=== PATIENT | female | born 1985 | race Caucasian/White ===

== ENCOUNTER 2017-01-20 15:20 | Inpatient (IN) | payer MEDICAID ==
[~2017-01-20] VITALS: Ht 162.6 cm; Wt 91.7 kg
[~2017-01-20 15:20] MED LIST: IBUP600T26 PO
[2017-01-20 15:43] VITALS: BP 114/68; PULSE 139; RESP 16; TEMP 103.1; O2SAT 95
[2017-01-20] MEDS ORDERED: AZTREONAM INJ 2,000 MG in SODIUM CHLORIDE 0.9% INJ 100 ML IV STA (16:14)
[2017-01-20] MEDS ORDERED: VANCOMYCIN INJ 1,300 MG in SODIUM CHLORID 0.9% 500 ML INJ 500 ML IV STA (16:14)
[2017-01-20] MEDS ORDERED: metroNIDAZOLE 500 MG INJ 100 ML IV STA (16:14)
[2017-01-20] MEDS ORDERED: ACETAMINOPHEN 650 MG SUPP RECTAL ONE (16:15)
[2017-01-20] MEDS ORDERED: SODIUM CHLOR 0.9% 1000 ML INJ 1,000 ML IV ONE ×2 (16:15)
[2017-01-20] MEDS ORDERED: HYDROmorphone HCL PF 1 MG/ML VIAL IV PUSH ONE (16:15)
[2017-01-20] MEDS ORDERED: ONDANSETRON HCL 4 MG/2 ML VIAL IV PUSH ONE (16:15)
--- NOTE | 2017-01-20 16:24 | PD ---
HPI Chief Complaint: Fever Time Seen by Provider: 16:10 Travel History International Travel<30 days: No Contact w/Intl Traveler<30days: No Traveled to known affect area: No History of Present Illness HPI This 31-year-old female is complaining of fever. Her fever started yesterday. She has had a lot of pain in her right buttock and its been swollen. There has been some drainage of pus from this area. There is no history of trauma. She does not have diabetes. She says there is no . She is allergic to penicillin [facility] Past Medical History Blood Disorders: No Anxiety: Yes (no meds) Diminished Hearing: No Immunizations Current: No Influenza Vaccination: No ?: Not LMP: 01/06/17 : 1 Para: 1 Social History Alcohol Use: No Tobacco Use: No (quit 5 yrs ago- smoked 1 pack cigs every few days) Substance Use: No Allergies-Medications (Allergen,Severity, Reaction): Coded Allergies: penicillin G (Unverified Allergy, Severe, RASH, 01/20/17) Reported Meds & Prescriptions Reported Meds & Active Scripts Active No Active Prescriptions or Reported Medications Review of Systems General / Constitutional: Positive: Fever, Chills Eyes: No: Diploplia, Blurred Vision HENT: No: Headaches Cardiovascular: No: Chest Pain or Discomfort, Palpitations Respiratory: No: Cough Gastrointestinal: Positive: Nausea, No: Abdominal Pain Genitourinary: No: Urgency, Frequency Musculoskeletal: Positive: Pain Skin: No Rash, No Itching Neurologic: No: Weakness Endocrine: No: Heat Intolerance, Cold Intolerance Physical Exam Narrative GENERAL: Well-developed female. Initial temp is 103. Heart rate is 140 SKIN: Focused skin assessment warm/dry. HEAD: Atraumatic. Normocephalic. EYES: Pupils equal and round. No scleral icterus. No injection or drainage. ENT: No nasal bleeding or discharge. Mucous membranes pink and moist. NECK: Trachea midline. No JVD. CARDIOVASCULAR: Regular rate and rhythm. No murmur appreciated. RESPIRATORY: No accessory muscle use. Clear to auscultation. Breath sounds equal bilaterally. GASTROINTESTINAL: Abdomen soft, non-tender, nondistended. Hepatic and splenic margins not palpable. Examining the right buttock there is a area of induration and tenderness which measures about 6 cm in diameter. The overlying skin is pink. There are a few smaller pustular lesions scattered on the skin MUSCULOSKELETAL: No obvious deformities. No clubbing. No cyanosis. No edema. NEUROLOGICAL: Awake and alert. No obvious cranial nerve deficits. Motor grossly within normal limits. Normal speech. PSYCHIATRIC: Appropriate mood and affect; insight and judgment normal. Data Data Last Documented VS Vital Signs Date Time Temp Pulse Resp B/P Pulse Ox O2 Delivery O2 Flow Rate FiO2 01/20/17 15:52 16 01/20/17 15:43 103.1 139 114/68 95 Orders Complete Blood Count With Diff (01/20/17 16:14) Comprehensive Metabolic Panel (01/20/17 16:14) Lactic Acid Sepsis Protocol (01/20/17 16:14) Urinalysis - C+S If Indicated (01/20/17 16:14) Blood Culture (01/20/17 16:14) Wound Culture And Gram Stain (01/20/17 16:14) Blood Glucose (01/20/17 16:14) Ecg Monitoring (01/20/17 16:14) Iv Access Insert/Monitor (01/20/17 16:14) Oximetry (01/20/17 16:14) Oxygen Administration (01/20/17 16:14) Aztreonam Inj (Azactam Inj) (01/20/17 16:14) Metronidazole 500 Mg Inj (Flagyl 500 Mg (01/20/17 16:14) Vancomycin Inj (Vancomycin Inj) (01/20/17 16:14) Sodium Chlor 0.9% 1000 Ml Inj (Ns 1000 M (01/20/17 16:15) Sodium Chlor 0.9% 1000 Ml Inj (Ns 1000 M (01/20/17 16:15) Acetaminophen Supp (Tylenol Supp) (01/20/17 16:15) Hydromorphone Pf Inj (Dilaudid Pf Inj) (01/20/17 16:15) Ondansetron Inj (Zofran Inj) (01/20/17 16:15) Lidocai-Epi 1%-1:100,000 Inj (Xylocaine- (01/20/17 16:30) Lidocaine 1% Inj (50 Ml) (Xylocaine 1% I (01/20/17 17:00) Potassium Chloride (Kcl) (01/20/17 17:45) Admit Order (Ed Use Only) (01/20/17 17:52) Labs Laboratory Tests Test 01/20/17 01/20/17 16:44 16:50 White Blood Count 22.8 TH/MM3 Red Blood Count 4.18 MIL/MM3 Hemoglobin 12.1 GM/DL Hematocrit 34.8 % Mean Corpuscular Volume 83.1 FL Mean Corpuscular Hemoglobin 29.0 PG Mean Corpuscular Hemoglobin 35.0 % Concent Red Cell Distribution Width 13.2 % Platelet Count 259 TH/MM3 Mean Platelet Volume 7.9 FL Neutrophils (%) (Auto) 89.4 % Lymphocytes (%) (Auto) 4.2 % Monocytes (%) (Auto) 6.3 % Eosinophils (%) (Auto) 0.0 % Basophils (%) (Auto) 0.1 % Neutrophils # (Auto) 20.4 TH/MM3 Lymphocytes # (Auto) 1.0 TH/MM3 Monocytes # (Auto) 1.4 TH/MM3 Eosinophils # (Auto) 0.0 TH/MM3 Basophils # (Auto) 0.0 TH/MM3 CBC Comment DIFF FINAL Differential Comment Sodium Level 132 MEQ/L Potassium Level 3.4 MEQ/L Chloride Level 98 MEQ/L Carbon Dioxide Level 27.4 MEQ/L Anion Gap 7 MEQ/L Blood Urea Nitrogen 6 MG/DL Creatinine 0.78 MG/DL Estimat Glomerular Filtration 85 ML/MIN Rate Random Glucose 96 MG/DL Lactic Acid Level 1.0 mmol/L Calcium Level 9.1 MG/DL Total Bilirubin 0.9 MG/DL Aspartate Amino Transf 10 U/L (AST/SGOT) Alanine Aminotransferase 14 U/L (ALT/SGPT) Alkaline Phosphatase 73 U/L Total Protein 7.8 GM/DL Albumin 3.4 GM/DL Urine Color YELLOW Urine Turbidity CLEAR Urine pH 6.0 Urine Specific [place] 1.010 Urine Protein NEG mg/dL Urine Glucose (UA) NEG mg/dL Urine Ketones 40 mg/dL Urine Occult Blood SMALL Urine Nitrite NEG Urine Bilirubin NEG Urine Leukocyte Esterase SMALL Urine WBC 3-5 /hpf Urine Squamous Epithelial 0-5 /hpf Cells Microscopic Urinalysis Comment CULT NOT INDICATED MDM Medical Decision Making Medical Screen Exam Complete: Yes Emergency Medical Condition: Yes Medical Record Reviewed: Yes Differential Diagnosis Differential includes abscess of the buttock, sepsis, Narrative Course White count is 22.8 with a hemoglobin of 12. IUD has been performed and purulent material has been obtained. Sepsis Criteria SIRS Criteria (2 or more): Temp > 100.9 or < 96.8, Heart rate over 90, WBC > 23187, < 4000 or > 10% bands Sepsis Criteria (SIRS+source): Infect source susp/known Diagnosis Primary Impression: Abscess of buttock, right Scripts No Active Prescriptions or Reported Meds Jones Kent MD Jan 20, 2017 16:24
[2017-01-20] MEDS ORDERED: LIDOCAINE 1%/EPINEPHrine 1:100,000 SOLN 20 ML VIAL INFIL ONE (16:30)
[2017-01-20] MEDS ORDERED: LIDOCAINE HCL 1% 50 ML VIAL INFIL ONE (17:00)
[2017-01-20 17:04] LABS: AUTOMATED NEUTROPHIL # 20.4 TH/MM3 (1.8-7.7); BASOPHIL % 0.1 % (0.0-2.0); HEMATOCRIT 34.8 % (35.0-46.0); LYMPH % 4.2 % (9.0-44.0); MEAN CELL VOLUME 83.1 FL (80.0-100.0); MONO % 6.3 % (0.0-8.0); NEUT % 89.4 % (16.0-70.0); PLATELET COUNT 259 TH/MM3 (150-450); RED BLOOD COUNT 4.18 MIL/MM3 (4.00-5.30); RED CELL DISTRIBUTION WIDTH 13.2 % (11.6-17.2); WHITE BLOOD COUNT 22.8 TH/MM3 (4.0-11.0)
[2017-01-20 17:05] LABS: BLOOD, URINE SMALL (NEG); GLUCOSE,URINE NEG (NEG); KETONE, URINE 40 mg/dL (NEG); NITRITE,URINE NEG (NEG)
[2017-01-20 17:08] LABS: HEMO FLAGS DIFF FINAL
[2017-01-20 17:14] LABS: CHLORIDE 98 MEQ/L (98-107); POTASSIUM 3.4 MEQ/L (3.5-5.1); SODIUM (NA) 132 MEQ/L (136-145)
[2017-01-20 17:17] LABS: URINE COLOR YELLOW (YELLW/STRAW)
[2017-01-20 17:18] LABS: ANION GAP 7 MEQ/L (5-15); BICARBONATE 27.4 MEQ/L (21.0-32.0); BLOOD UREA NITROGEN 6 MG/DL (7-18)
[2017-01-20 17:18] LABS: COMMENT (UR) CULT NOT INDICATED; CULTURE IF INDICATED CULT NOT INDICATED; SQUAMOUS EPITHELIAL CELL URINE 0-5 /hpf (0-5)
[2017-01-20 17:21] LABS: ALT (GPT) 14 U/L (10-53); AST (GOT) 10 U/L (15-37); GLOMERULAR FILTRATION RATE 85 ML/MIN (>89)
[2017-01-20 17:23] LABS: TOTAL BILIRUBIN ADULT 0.9 MG/DL (0.2-1.0)
[2017-01-20 17:24] LABS: ALKALINE PHOSPHATASE 73 U/L (45-117)
--- NOTE | 2017-01-20 17:41 | PD ---
Physical Exam Time Seen by Provider: 17:00 Narrative I was asked by Dr. Padilla to perform an incision and drainage on this patient. Please see his note for further details. Data Data Last Documented VS Vital Signs Date Time Temp Pulse Resp B/P Pulse Ox O2 Delivery O2 Flow Rate FiO2 01/20/17 15:52 16 01/20/17 15:43 103.1 139 114/68 95 Orders Complete Blood Count With Diff (01/20/17 16:14) Comprehensive Metabolic Panel (01/20/17 16:14) Lactic Acid Sepsis Protocol (01/20/17 16:14) Urinalysis - C+S If Indicated (01/20/17 16:14) Blood Culture (01/20/17 16:14) Wound Culture And Gram Stain (01/20/17 16:14) Blood Glucose (01/20/17 16:14) Ecg Monitoring (01/20/17 16:14) Iv Access Insert/Monitor (01/20/17 16:14) Oximetry (01/20/17 16:14) Oxygen Administration (01/20/17 16:14) Aztreonam Inj (Azactam Inj) (01/20/17 16:14) Metronidazole 500 Mg Inj (Flagyl 500 Mg (01/20/17 16:14) Vancomycin Inj (Vancomycin Inj) (01/20/17 16:14) Sodium Chlor 0.9% 1000 Ml Inj (Ns 1000 M (01/20/17 16:15) Sodium Chlor 0.9% 1000 Ml Inj (Ns 1000 M (01/20/17 16:15) Acetaminophen Supp (Tylenol Supp) (01/20/17 16:15) Hydromorphone Pf Inj (Dilaudid Pf Inj) (01/20/17 16:15) Ondansetron Inj (Zofran Inj) (01/20/17 16:15) Lidocai-Epi 1%-1:100,000 Inj (Xylocaine- (01/20/17 16:30) Lidocaine 1% Inj (50 Ml) (Xylocaine 1% I (01/20/17 17:00) Labs Laboratory Tests Test 01/20/17 01/20/17 16:44 16:50 White Blood Count 22.8 TH/MM3 Red Blood Count 4.18 MIL/MM3 Hemoglobin 12.1 GM/DL Hematocrit 34.8 % Mean Corpuscular Volume 83.1 FL Mean Corpuscular Hemoglobin 29.0 PG Mean Corpuscular Hemoglobin 35.0 % Concent Red Cell Distribution Width 13.2 % Platelet Count 259 TH/MM3 Mean Platelet Volume 7.9 FL Neutrophils (%) (Auto) 89.4 % Lymphocytes (%) (Auto) 4.2 % Monocytes (%) (Auto) 6.3 % Eosinophils (%) (Auto) 0.0 % Basophils (%) (Auto) 0.1 % Neutrophils # (Auto) 20.4 TH/MM3 Lymphocytes # (Auto) 1.0 TH/MM3 Monocytes # (Auto) 1.4 TH/MM3 Eosinophils # (Auto) 0.0 TH/MM3 Basophils # (Auto) 0.0 TH/MM3 CBC Comment DIFF FINAL Differential Comment Sodium Level 132 MEQ/L Potassium Level 3.4 MEQ/L Chloride Level 98 MEQ/L Carbon Dioxide Level 27.4 MEQ/L Anion Gap 7 MEQ/L Blood Urea Nitrogen 6 MG/DL Creatinine 0.78 MG/DL Estimat Glomerular Filtration 85 ML/MIN Rate Random Glucose 96 MG/DL Lactic Acid Level 1.0 mmol/L Calcium Level 9.1 MG/DL Total Bilirubin 0.9 MG/DL Aspartate Amino Transf 10 U/L (AST/SGOT) Alanine Aminotransferase 14 U/L (ALT/SGPT) Alkaline Phosphatase 73 U/L Total Protein 7.8 GM/DL Albumin 3.4 GM/DL Urine Color YELLOW Urine Turbidity CLEAR Urine pH 6.0 Urine Specific [place] 1.010 Urine Protein NEG mg/dL Urine Glucose (UA) NEG mg/dL Urine Ketones 40 mg/dL Urine Occult Blood SMALL Urine Nitrite NEG Urine Bilirubin NEG Urine Leukocyte Esterase SMALL Urine WBC 3-5 /hpf Urine Squamous Epithelial 0-5 /hpf Cells Microscopic Urinalysis Comment CULT NOT INDICATED MDM Medical Record Reviewed: Yes Supervised Visit with DALE: Yes Procedures Procedure Narrative INCISION AND DRAINAGE OF ABSCESS: The area was prepped and was sterilely draped. A subcutaneous wheal of 1% lidocaine with a total number 8 mL was used to anesthetize the area properly. A number 11 scalpel was used to make a 1 cm incision across the area of the abscess. The abscess was drained, complex loculations were broken down, and irrigated with normal saline. Cultures were obtained. Quarter inch iodoform packing was placed in the wound. Sterile dressing applied. Patient advised to have packing removed in two days. Diagnosis Primary Impression: Abscess of buttock, right Scripts No Active Prescriptions or Reported Meds Margaret Carter Jan 20, 2017 17:41
[2017-01-20] MEDS ORDERED: POTASSIUM CHLORIDE 20 MEQ CONTROLLED RELEASE TAB PO ONE (17:45)
[2017-01-20] MEDS ORDERED: ACETAMINOPHEN 500 MG CPLT PO PRN (18:15)
[2017-01-20] MEDS ORDERED: SODIUM CHLORIDE 0.9% FLUSH 10 ML FLUSH IV FLUSH PRN (18:15)
[2017-01-20] MEDS ORDERED: ACETAMINOPHEN/HYDROcodone 325 MG/5 MG TAB PO PRN (18:15)
[2017-01-20] MEDS ORDERED: Vancomycin Consult Pharmacy 1 EA OTHER SCH (18:15)
[2017-01-20 18:36] VITALS: BP 100/49; PULSE 112; RESP 16; TEMP 100.9; O2SAT 95
[2017-01-20 18:37] VITALS: O2SAT 96
--- NOTE | 2017-01-20 18:45 | HHI.HP ---
[facility] Primary Care Physician No Primary Care Physician Admission Diagnosis ABCESS OF BUTTOCK, SEPSIS Diagnoses: Chief Complaint: Buttock abscess Travel History International Travel<30 Days: No Contact w/Intl Traveler <30 Da: No Traveled to Known Affected Are: No Sepsis Criteria SIRS Criteria (2 or more): Temp > 100.9 or < 96.8, Heart rate over 90, WBC > 81314, < 4000 or > 10% bands Sepsis Criteria (SIRS+source): Infect source susp/known History of Present Illness 31-year-old female with no prior medical history presents to the emergency room with complaint of right buttocks abscess, fevers, general malaise. Patient reports she noticed a pimple involving the right buttock about 2 days ago. There has been increasing swelling and has become severely painful today. She did notice a small amount of drainage. Today she started experiencing fevers, chills, lightheadedness which prompted the emergency room visit. Initial workup in the emergency room found a right buttock abscess. Status post I&D with purulent drainage. Patient meets criteria for sepsis and I was asked to admit for IV antibiotics. Review of Systems Constitutional: COMPLAINS OF: Fatigue, Fever, Chills, Dizziness Integumentary: COMPLAINS OF: Rash Except as stated in HPI: all other systems reviewed are Neg Past Family Social History Past Medical History None Past Surgical History None Reported Medications Reported Meds & Active Scripts Active No Active Prescriptions or Reported Medications Allergies: Coded Allergies: penicillin G (Unverified Allergy, Severe, RASH, 01/20/17) Family History No significant medical history in close relatives. Social History Patient does not use tobacco, alcohol, or illicit drugs. Physical Exam Vital Signs Vital Signs Date Time Temp Pulse Resp B/P Pulse Ox O2 Delivery O2 Flow Rate FiO2 01/20/17 15:52 16 01/20/17 15:43 103.1 139 16 114/68 95 Physical Exam GENERAL: This is a well-nourished, well-developed patient, in no apparent distress. SKIN: Right buttock's abscess status post I/D. There is another area superiorly that is indurated. On the left buttock she has a small pustule. Left perineal area has some erythema but no discrete fluctuance noted. HEAD: Atraumatic. Normocephalic. No temporal or scalp tenderness. EYES: Pupils equal round and reactive. Extraocular motions intact. No scleral icterus. No injection or drainage. ENT: Nose without bleeding, purulent drainage or septal hematoma. Throat without erythema, tonsillar hypertrophy or exudate. Uvula midline. Airway patent. NECK: Trachea midline. No JVD or lymphadenopathy. Supple, nontender, no meningeal signs. CARDIOVASCULAR: Regular rate and rhythm without murmurs, gallops, or rubs. RESPIRATORY: Clear to auscultation. Breath sounds equal bilaterally. No wheezes , rales, or rhonchi. GASTROINTESTINAL: Abdomen soft, non-tender, nondistended. No hepato-splenomegaly , or palpable masses. No guarding. MUSCULOSKELETAL: Extremities without clubbing, cyanosis, or edema. No joint tenderness, effusion, or edema noted. No calf tenderness. Negative Homans sign bilaterally. NEUROLOGICAL: Awake and alert. Cranial nerves II through XII intact. Motor and sensory grossly within normal limits. Five out of 5 muscle strength in all muscle groups. Normal speech. Laboratory Laboratory Tests Test 01/20/17 01/20/17 16:44 16:50 White Blood Count 22.8 Red Blood Count 4.18 Hemoglobin 12.1 Hematocrit 34.8 Mean Corpuscular Volume 83.1 Mean Corpuscular Hemoglobin 29.0 Mean Corpuscular Hemoglobin 35.0 Concent Red Cell Distribution Width 13.2 Platelet Count 259 Mean Platelet Volume 7.9 Neutrophils (%) (Auto) 89.4 Lymphocytes (%) (Auto) 4.2 Monocytes (%) (Auto) 6.3 Eosinophils (%) (Auto) 0.0 Basophils (%) (Auto) 0.1 Neutrophils # (Auto) 20.4 Lymphocytes # (Auto) 1.0 Monocytes # (Auto) 1.4 Eosinophils # (Auto) 0.0 Basophils # (Auto) 0.0 CBC Comment DIFF FINAL Differential Comment Sodium Level 132 Potassium Level 3.4 Chloride Level 98 Carbon Dioxide Level 27.4 Anion Gap 7 Blood Urea Nitrogen 6 Creatinine 0.78 Estimat Glomerular Filtration 85 Rate Random Glucose 96 Lactic Acid Level 1.0 Calcium Level 9.1 Total Bilirubin 0.9 Aspartate Amino Transf 10 (AST/SGOT) Alanine Aminotransferase 14 (ALT/SGPT) Alkaline Phosphatase 73 Total Protein 7.8 Albumin 3.4 Urine Color YELLOW Urine Turbidity CLEAR Urine pH 6.0 Urine Specific [place] 1.010 Urine Protein NEG Urine Glucose (UA) NEG Urine Ketones 40 Urine Occult Blood SMALL Urine Nitrite NEG Urine Bilirubin NEG Urine Leukocyte Esterase SMALL Urine WBC 3-5 Urine Squamous Epithelial 0-5 Cells Microscopic Urinalysis Comment CULT NOT INDICATED Date/Time Procedure Status Source Growth 01/20/17 16:56 Aerobic Blood Culture Received Blood Peripheral Pending 01/20/17 16:56 Anaerobic Blood Culture Received Blood Peripheral Pending Result Diagram: 01/20/17 1644 01/20/17 1644 Assessment and Plan Problem List: (1) Sepsis affecting skin ICD Code: A41.9 Status: Acute (2) Abscess of buttock, right ICD Code: L02.31 Status: Acute Assessment and Plan 31-year-old female with sepsis secondary to soft tissue infection with purulent right buttocks abscess and cellulitis. Patient received a dose of vancomycin and aztreonam in the ED. Continue vancomycin Follow blood and wound cultures. IV fluid. Monitor closely for improvement. If symptoms or clinical signs worsening, next up will be to obtain a CAT scan. Pain control. Wound care GI prophylaxis: Stool softener PRN constipation. DVT PPx: SCDs. Physician Certification 2 Midnight Certification Type: Admission for Inpatient Services Order for Inpatient Services The services are ordered in accordance with Medicare regulations or non- Medicare payer requirements, as applicable. In the case of services not specified as inpatient-only, they are appropriately provided as inpatient services in accordance with the 2-midnight benchmark. Estimated LOS (days): 3 days is the estimated time the patient will need to remain in the hospital, assuming treatment plan goals are met and no additional complications. Post-Hospital Plan: Home Latonya Carpenter MD Jan 20, 2017 18:45
[2017-01-20] MEDS: LACTATED RINGER'S 1000 ML INJ 1,000 ML IV SCH (19:33)
[2017-01-20 19:55] VITALS: BP 95/49; PULSE 120; RESP 16; O2SAT 97
[2017-01-20 20:00] VITALS: BP 108/63; PULSE 114; RESP 16; TEMP 98.1; O2SAT 96
[2017-01-20 20:30] VITALS: BP 96/57; PULSE 118; RESP 16; TEMP 101.6; O2SAT 97
[2017-01-20] MEDS: SODIUM CHLORIDE 0.9% FLUSH 10 ML FLUSH IV FLUSH SCH (21:00)
[2017-01-20] MEDS: ACETAMINOPHEN/HYDROcodone 325 MG/7.5 MG TAB PO PRN (21:10)
[2017-01-21] VITALS (7 sets, daily range): BP systolic 85–99; BP diastolic 56–71; PULSE 78–111; RESP 16–20; TEMP 96.5–99.5; O2SAT 94–100
[2017-01-21] MEDS: ACETAMINOPHEN/HYDROcodone 325 MG/7.5 MG TAB PO PRN ×2 (03:45→19:54)
[2017-01-21] MEDS: LACTATED RINGER'S 1000 ML INJ 1,000 ML IV SCH ×3 (03:45→20:57)
[2017-01-21] MEDS: VANCOMYCIN INJ 1,000 MG in SODIUM CHLOR 0.9% 250 ML INJ 250 ML IV SCH ×2 (05:40→19:00)
[2017-01-21 05:58] LABS: AUTOMATED NEUTROPHIL # 24.1 TH/MM3 (1.8-7.7); BASOPHIL % 0.1 % (0.0-2.0); HEMATOCRIT 30.5 % (35.0-46.0); LYMPH % 4.9 % (9.0-44.0); LYMPHOCYTE # 1.3 TH/MM3 (1.0-4.8); MEAN CELL VOLUME 84.1 FL (80.0-100.0); MEAN CORPUSCULAR HEMOGLOBIN 28.3 PG (27.0-34.0); MEAN CORPUSCULAR HGB CONC 33.7 % (32.0-36.0); MONO % 7.8 % (0.0-8.0); NEUT % 87.2 % (16.0-70.0); PLATELET COUNT 237 TH/MM3 (150-450); RED BLOOD COUNT 3.62 MIL/MM3 (4.00-5.30); RED CELL DISTRIBUTION WIDTH 13.2 % (11.6-17.2); WHITE BLOOD COUNT 27.5 TH/MM3 (4.0-11.0)
[2017-01-21 06:04] LABS: HEMO FLAGS AUTO DIFF; POTASSIUM 3.3 MEQ/L (3.5-5.1)
[2017-01-21 06:25] LABS: BANDS 12 % (0-6); NEUTROPHIL # MANUAL DIFF 26.1 TH/MM3 (1.8-7.7); POLYS (SEG NEUTROPHILS) 83 % (16-70); WBC DIFF SAMPLE 100
[2017-01-21 06:26] LABS: PLATELET ESTIMATE SMEAR NORMAL (NORMAL); PLATELET MORPHOLOGY NORMAL (NORMAL); SCAN/DIFF FINAL DIFF MANUAL
[2017-01-21 06:34] LABS: BICARBONATE 24.3 MEQ/L (21.0-32.0)
--- NOTE | 2017-01-21 08:46 | HHI.PR ---
Subjective Remarks Patient reports persistent right buttocks pain today. Still had fever earlier today. Objective Vitals Vital Signs Date Time Temp Pulse Resp B/P Pulse Ox O2 Delivery O2 Flow Rate FiO2 01/21/17 08:00 97.0 91 20 99/66 98 01/21/17 00:00 99.5 111 16 97/63 95 01/20/17 20:30 101.6 118 16 96/57 97 Room Air 01/20/17 20:00 98.1 114 16 108/63 96 01/20/17 19:55 120 16 95/49 97 Room Air 01/20/17 19:00 120 16 01/20/17 18:37 96 01/20/17 18:37 96 Room Air 01/20/17 18:36 100.9 112 16 100/49 95 Room Air 01/20/17 15:52 16 01/20/17 15:43 103.1 139 16 114/68 95 I/O 01/20/17 01/20/17 01/20/17 01/21/17 01/21/17 01/21/17 07:00 15:00 23:00 07:00 15:00 23:00 Intake Total 2350 ml Balance 2350 ml Intake IV Total 2350 ml # Voids 3 Result Diagram: 01/21/17 0455 01/21/17 0455 Objective Remarks GENERAL: This is a well-nourished, well-developed patient, in no acute distress. SKIN: Right buttock's abscess status post I/D. There is another area superiorly that is indurated, slight progression compared to yesterday. On the left buttock she has a small pustule. Left perineal area has some erythema and a small open area that is draining. CARDIOVASCULAR: Normal rate and regular rhythm without murmurs, gallops, or rubs. RESPIRATORY: Good respiratory efforts. Breath sounds equal and clear to auscultation bilaterally. GASTROINTESTINAL: Abdomen soft, non-tender, non-distended. Normal active bowel sounds MUSCULOSKELETAL: Extremities without cyanosis, or edema. NEURO: Alert & Oriented x4 to person, place, time, situation. Moves all ext x4 PSYCH: Appropriate mood and affect. A/P Problem List: (1) Sepsis affecting skin ICD Code: A41.9 Status: Acute (2) Abscess of buttock, right ICD Code: L02.31 Status: Acute Assessment and Plan 31-year-old female with sepsis secondary to soft tissue infection with purulent right buttocks abscess and cellulitis. Leukocytosis is worse today. Persistent fever. -Patient seen with general surgery [employer]. There is a large pocket of abscess above the small one that was drained in the emergency room. This will require debridement. Plan for surgery today. Patient received a dose of vancomycin and aztreonam in the ED. Continue vancomycin and Aztreonam. Patient allergic to penicillin. Consult ID to assist with antibiotics Follow blood and wound cultures. IV fluid. Pain control. Wound care GI prophylaxis: Stool softener PRN constipation. DVT PPx: SCDs. Latonya Carpenter MD Jan 21, 2017 08:46
[2017-01-21] MEDS: SODIUM CHLORIDE 0.9% FLUSH 10 ML FLUSH IV FLUSH SCH ×2 (09:00→21:00)
--- NOTE | 2017-01-21 10:05 | PD.CONS ---
cc: Prince Denise MD [facility] Service General Surgery Consult Requested By Dr. Carpenter Reason for Consult Evaluation of RIGHT buttocks abscess Primary Care Physician No Primary Care Physician History of Present Illness This is a 31 year female with no past medical history reports to the ED with complaint of a painful "bug bite" on her RIGHT buttocks. She first noticed the painful bump on Tuesday night. At this time it was red without any drainage. On Tuesday it grew bigger but still no drainage. On Tuesday and it started draining purulent drainage. In the ED, the area was opening and purulent drainage was cultured. Overnight the patient had a temperature and today's labs show an increase in WBC. The patient was examined with Dr. Carpenter and he reports that today's exam has a larger area of of redness and increase in tenderness in comparison to yesterday's exam. A General Surgery consultation has been requested for evaluation of RIGHT buttocks abscess. Review of Systems Constitutional: COMPLAINS OF: Fever, DENIES: Fatigue, Change in appetite Endocrine: DENIES: Polydipsia, Polyuria, Polyphagia Eyes: DENIES: Diplopia Ears, nose, mouth, throat: DENIES: Hearing loss Respiratory: DENIES: Apneas Cardiovascular: DENIES: Chest pain Gastrointestinal: DENIES: Abdominal pain, Nausea, Vomiting Genitourinary: DENIES: Urinary frequency Musculoskeletal: DENIES: Joint pain Integumentary: DENIES: Abnormal pigmentation Hematologic/lymphatic: DENIES: Bruising Immunologic/allergic: DENIES: Eczema Neurologic: DENIES: Headache Psychiatric: DENIES: Mood changes, Depression, Hallucinations Past Family Social History Past Medical History None Past Surgical History None Reported Medications None Allergies: Coded Allergies: penicillin G (Unverified Allergy, Severe, Hives, 01/28/17) Active Ordered Medications Current Medications Medications (Trade) Dose Ordered Sig/Charanjit Route Start Time Stop Time Status Last Admin (NS Flush) 2 ml BID IV FLUSH 01/20/17 21:00 Sodium Chloride 2 ml 2 ml UNSCH PRN IV FLUSH 01/20/17 18:15 Lactated Ringer's 1,000 ml @ 125 mls/hr Q8H IV 01/20/17 18:04 01/21/17 03:45 (Vancomycin Consult Pharmacy) 0 ml @ 0 mls/hr UNSCH OTHER 01/20/17 18:15 (Tylenol) 500 mg Q4H PRN PO 01/20/17 18:15 (Tingley 5-325 Mg) 1 tab Q4H PRN PO 01/20/17 18:15 Acetaminophen/ Hydrocodone Bitart 1 tab 1 tab Q4H PRN PO 01/20/17 18:15 01/21/17 03:45 (Vancomycin Inj/ NS 250 ml Inj) 250 ml @ 250 mls/hr Q12H IV 01/21/17 06:00 01/21/17 05:40 Miscellaneous Information SPECIFIC LAB TO BE PARKER... ONCE ONCE .XX 01/22/17 05:45 01/22/17 05:46 Family History Non contributory Social History Denies tobacco use Denies ETOH use Denies illicit drug use Physical Exam Vital Signs Vital Signs Date Time Temp Pulse Resp B/P Pulse Ox O2 Delivery O2 Flow Rate FiO2 01/21/17 08:00 97.0 91 20 99/66 98 01/21/17 00:00 99.5 111 16 97/63 95 01/20/17 20:30 101.6 118 16 96/57 97 Room Air 01/20/17 20:00 98.1 114 16 108/63 96 01/20/17 19:55 120 16 95/49 97 Room Air 01/20/17 19:00 120 16 01/20/17 18:37 96 01/20/17 18:37 96 Room Air 01/20/17 18:36 100.9 112 16 100/49 95 Room Air 01/20/17 15:52 16 01/20/17 15:43 103.1 139 16 114/68 95 Physical Exam GENERAL: Pleasant 31 year old female resting in bed SKIN: RIGHT buttocks: prior I&D site packing removed----minimal drainage; area of redness lateral to prior I&D site. HEAD: Atraumatic. Normocephalic. EYES: Pupils equal and round. No scleral icterus. No injection or drainage. ENT: No nasal bleeding or discharge. Mucous membranes pink and moist. NECK: Trachea midline. CARDIOVASCULAR: Regular rate and rhythm. RESPIRATORY: No accessory muscle use. Clear to auscultation. Breath sounds equal bilaterally. GASTROINTESTINAL: Abdomen soft, non-tender, nondistended. MUSCULOSKELETAL: Extremities without clubbing, cyanosis, or edema. No obvious deformities. NEUROLOGICAL: Awake and alert. No obvious cranial nerve deficits. Motor grossly within normal limits. Five out of 5 muscle strength in the arms and legs. Normal speech. PSYCHIATRIC: Appropriate mood and affect; insight and judgment normal. Laboratory Laboratory Tests Test 01/20/17 01/20/17 01/21/17 16:44 16:50 04:55 White Blood Count 22.8 27.5 Red Blood Count 4.18 3.62 Hemoglobin 12.1 10.3 Hematocrit 34.8 30.5 Mean Corpuscular Volume 83.1 84.1 Mean Corpuscular Hemoglobin 29.0 28.3 Mean Corpuscular Hemoglobin 35.0 33.7 Concent Red Cell Distribution Width 13.2 13.2 Platelet Count 259 237 Mean Platelet Volume 7.9 8.2 Neutrophils (%) (Auto) 89.4 87.2 Lymphocytes (%) (Auto) 4.2 4.9 Monocytes (%) (Auto) 6.3 7.8 Eosinophils (%) (Auto) 0.0 0.0 Basophils (%) (Auto) 0.1 0.1 Neutrophils # (Auto) 20.4 24.1 Lymphocytes # (Auto) 1.0 1.3 Monocytes # (Auto) 1.4 2.1 Eosinophils # (Auto) 0.0 0.0 Basophils # (Auto) 0.0 0.0 CBC Comment DIFF FINAL AUTO DIFF Differential Comment FINAL DIFF MANUAL Sodium Level 132 136 Potassium Level 3.4 3.3 Chloride Level 98 103 Carbon Dioxide Level 27.4 24.3 Anion Gap 7 9 Blood Urea Nitrogen 6 4 Creatinine 0.78 0.57 Estimat Glomerular Filtration 85 122 Rate Random Glucose 96 102 Lactic Acid Level 1.0 Calcium Level 9.1 8.5 Total Bilirubin 0.9 Aspartate Amino Transf 10 (AST/SGOT) Alanine Aminotransferase 14 (ALT/SGPT) Alkaline Phosphatase 73 Total Protein 7.8 Albumin 3.4 Urine Color YELLOW Urine Turbidity CLEAR Urine pH 6.0 Urine Specific [place] 1.010 Urine Protein NEG Urine Glucose (UA) NEG Urine Ketones 40 Urine Occult Blood SMALL Urine Nitrite NEG Urine Bilirubin NEG Urine Leukocyte Esterase SMALL Urine WBC 3-5 Urine Squamous Epithelial 0-5 Cells Microscopic Urinalysis Comment CULT NOT INDICATED Differential Total Cells 100 Counted Neutrophils % (Manual) 83 Band Neutrophils % 12 Lymphocytes % 2 Monocytes % 3 Neutrophils # (Manual) 26.1 Platelet Estimate NORMAL Platelet Morphology Comment NORMAL Red Cell Morphology Comment NORMAL Date/Time Procedure Status Source Growth 01/20/17 17:00 Gram Stain - Final Resulted Wound Buttock 01/20/17 17:00 Wound Culture Resulted Wound Buttock Pending 01/20/17 16:56 Aerobic Blood Culture Received Blood Peripheral Pending 01/20/17 16:56 Anaerobic Blood Culture Received Blood Peripheral Pending Result Diagram: 01/21/17 0455 01/21/17 0455 Assessment and Plan Assessment and Plan 31 year old female with RIGHT buttocks abscess -Plan for OR today for irrigation and debridement and possible Wound Vac placement -NPO -Hold anticoagulation -Obtain consents -Discussed with Dr. Carpenter -Thank you for this consult; We will continue to follow Attending Note - Dr. Denise Right buttocks incompletely drained; two fluctuant areas noted Needs surgical drainage GAR discussed with patient, who vocalizes understanding and agrees to proceed. The exam, history, and the medical decision-making described in the above note were completed with the assistance of the mid-level provider. I reviewed and agree with the findings presented. I attest that I had a [id number] encounter with the patient on the same day, and personally performed and documented my assessment and findings in the medical record. Discussed Condition With Yessenia Byrne Dr., Ms. Jan 21, 2017 10:04 Prince Denise MD Feb 07, 2017 17:08
[2017-01-21] MEDS ORDERED: fentaNYL CITRATE 250 MCG/5 ML AMP IV ONE (12:00)
[2017-01-21] MEDS ORDERED: ONDANSETRON HCL 4 MG/2 ML VIAL IV PUSH ONE (12:00)
[2017-01-21] MEDS: AZTREONAM INJ 1,000 MG in SODIUM CHLORIDE 0.9% INJ 100 ML IV SCH (12:00)
[2017-01-21] MEDS ORDERED: PROPOFOL 200 MG/20 ML AMP IV ONE (12:00)
[2017-01-21] MEDS ORDERED: NEOMYCIN/POLYMYXIN 1 ML G.U. IRRIGANT ONE (13:53)
[2017-01-21] MEDS ORDERED: LIDOCAINE 1%/EPINEPHrine 1:100,000 SOLN 20 ML VIAL ONE ×2 (13:53)
[2017-01-21] MEDS ORDERED: DEXAMETHASONE SOD PHOS 4 MG/ML VIAL ONE (14:01)
[2017-01-21] MEDS ORDERED: MIDAZOLAM HCL 2 MG/2 ML VIAL ONE (14:01)
[2017-01-21] MEDS ORDERED: FAMOTIDINE 20 MG/2 ML VIAL ONE (14:02)
[2017-01-21] MEDS ORDERED: POVIDONE IODINE 5% (ANTISEPSIS KIT) 4 APPLICATIONS EACH NARE PRN (14:45)
[2017-01-21] MEDS ORDERED: SODIUM CHLORID 0.9% 500 ML IV PRN (14:45)
[2017-01-21] MEDS ORDERED: CHLORHEXIDINE GLUCONATE 2 % 1 PACK (2 CLOTHS) TOPICAL PRN (14:45)
[2017-01-21] MEDS ORDERED: METOPROLOL TARTRATE 25 MG TAB PO PRN (14:45)
[2017-01-21] MEDS ORDERED: INSULIN HUMAN REGULAR 1,000 UNITS/10 ML VIAL SQ PRN (14:45)
--- NOTE | 2017-01-21 15:27 | HHI.PR ---
cc: Prince Denise MD Immediate Post Op Note Procedure Date: Jan 21, 2017 Pre Op Diagnosis: Right buttock abscess Post Op Diagnosis: Same Surgeon: Prince Denise [employer] Signal Technician(s): None Procedure: Incision and drainage RIGHT buttock abscess Complications: None Specimen(s) removed: None Estimated blood loss: <30 ml Anesthesia: General Drains: None IVF (500 ml) Patient to: PACU Patient Condition: Good Date/Time of Procedure: SEE SURGICAL CARE RECORD Prince Denise MD Jan 21, 2017 15:27
[2017-01-21] MEDS ORDERED: *MEPERIDINE 25 MG INJ VIAL PERIprocedural Use ONLY ONE (15:51)
--- NOTE | 2017-01-21 16:08 | PD.CONS ---
History of Present Illness Service Infectious Disease Consult Requested By Dr Gabe Carpenter Reason for Consult Evaluate patient with extensive buttock abscess, assist with antibiotic management Primary Care Physician No Primary Care Physician Diagnoses: History of Present Illness Patient seen and examined. Records reviewed. Patient is a 31-year-old female, presented to the hospital complaining of fever and chills, and increasing pain and swelling on her right buttock. She noted a pimple on her face, as well as a pimple on her right buttock. This was about 34 days prior to admission. The one on her face got better, but the one on her right buttocks started increasing in size, and it was becoming ankle. It started having some drainage. On the day of admission she started getting fevers and chills, generalized malaise, and some lightheadedness. This prompted her to go to the emergency room for further evaluation and treatment. Patient states that she initially gets some pimple in the suprapubic region when she shaves. She has never had any problem with big boils in the past. She also had some nausea on the day of admission. She denies any respiratory complaint, sore throat, diarrhea, or any urinary complaints. Since admission, she has had high fevers. Her WBC was 22,000, and it went up to 27,000 today. Patient was seen by surgery, and taken to the operating room today, and had I and D of a large abscess in the right buttock. Infectious disease consultation has been requested to assist with antibiotic management. Review of Systems Constitutional: COMPLAINS OF: Fatigue, Fever Eyes: DENIES: Eye pain Ears, nose, mouth, throat: DENIES: Nasal discharge, Oral lesions, Throat pain, Hoarseness, Sinus Pain, Toothache Respiratory: DENIES: Cough, Shortness of breath Cardiovascular: DENIES: Chest pain, Palpitations, Syncope Gastrointestinal: COMPLAINS OF: Nausea, Vomiting, DENIES: Abdominal pain, Diarrhea, Difficulty Swallowing, Anorexia Genitourinary: DENIES: Urgency, Dysuria Musculoskeletal: COMPLAINS OF: Muscle aches, DENIES: Joint pain, Joint Swelling Integumentary: DENIES: Pruritus Psychiatric: DENIES: Confusion, Hallucinations Past Family Social History Allergies: Coded Allergies: penicillin G (Unverified Allergy, Severe, RASH, 01/20/17) Past Medical History One , and normal vaginal delivery Denies diabetes Past Surgical History None Active Ordered Medications Tylenol [place] Azactam Insulin Lopressor Morphine Vancomycin Family History Noncontributory to current ID problem Social History Denies smoking Denies alcohol abuse Denies illicit drugs Physical Exam Vital Signs Vital Signs Date Time Temp Pulse Resp B/P Pulse Ox O2 Delivery O2 Flow Rate FiO2 01/21/17 15:45 95 14 81/53 99 Nasal Cannula 2 01/21/17 15:30 93 14 90/59 100 Nasal Cannula 2 01/21/17 15:21 99.5 102 14 98/61 100 Nasal Cannula 2 01/21/17 15:21 102 01/21/17 12:00 99.1 98 16 85/56 99 01/21/17 08:00 97.0 91 20 99/66 98 01/21/17 00:00 99.5 111 16 97/63 95 01/20/17 20:30 101.6 118 16 96/57 97 Room Air 01/20/17 20:00 98.1 114 16 108/63 96 01/20/17 19:55 120 16 95/49 97 Room Air 01/20/17 19:00 120 16 01/20/17 18:37 96 01/20/17 18:37 96 Room Air 01/20/17 18:36 100.9 112 16 100/49 95 Room Air Physical Exam GENERAL: Patient is an obese, well-developed CF, awake and alert, not in respiratory distress. SKIN: Warm and dry. No generalized rash, no ecchymoses and no evidence of embolic lesions. HEAD: Atraumatic. Normocephalic. No temporal wasting, or tenderness. EYES: [place] conjunctiva. No petechia or hemorrhage. Pupils equal, round and reactive to light. Extraocular movements full and intact. No scleral icterus. No injection or drainage. EARS, NOSE AND THROAT: Nose without bleeding or purulent nasal discharge. No sinus tenderness. Mucous membranes pink and moist. No oral lesions noted. NECK: Trachea midline. Supple and not tender, no meningeal signs CARDIOVASCULAR: Regular rate and rhythm. No murmurs, rubs or gallops heard RESPIRATORY: Clear to auscultation. Breath sounds equal bilaterally. No rales , wheezing or rhonchi. Decreased breath sounds at the bases. ABDOMEN: Soft, obese,, non-tender, nondistended. Bowel sounds present and normoactive. No guarding. No rebound. No organomegaly. One pustule noted above pubis EXTREMITIES: No clubbing, cyanosis, or edema.No joint effusion, has good ROM. No calf tenderness. Well perfused and warm. BACK: Long incision R buttocks, with packing, surrounding induration noted NEUROLOGICAL: Awake and alert. Cranial nerves grossly intact. Motor grossly within normal limits. PSYCHIATRIC: Normal affect, calm and cooperative. LINE: No evidence of infection Laboratory Laboratory Tests Test 01/20/17 01/20/17 01/21/17 16:44 16:50 04:55 White Blood Count 22.8 27.5 Red Blood Count 4.18 3.62 Hemoglobin 12.1 10.3 Hematocrit 34.8 30.5 Mean Corpuscular Volume 83.1 84.1 Mean Corpuscular Hemoglobin 29.0 28.3 Mean Corpuscular Hemoglobin 35.0 33.7 Concent Red Cell Distribution Width 13.2 13.2 Platelet Count 259 237 Mean Platelet Volume 7.9 8.2 Neutrophils (%) (Auto) 89.4 87.2 Lymphocytes (%) (Auto) 4.2 4.9 Monocytes (%) (Auto) 6.3 7.8 Eosinophils (%) (Auto) 0.0 0.0 Basophils (%) (Auto) 0.1 0.1 Neutrophils # (Auto) 20.4 24.1 Lymphocytes # (Auto) 1.0 1.3 Monocytes # (Auto) 1.4 2.1 Eosinophils # (Auto) 0.0 0.0 Basophils # (Auto) 0.0 0.0 CBC Comment DIFF FINAL AUTO DIFF Differential Comment FINAL DIFF MANUAL Sodium Level 132 136 Potassium Level 3.4 3.3 Chloride Level 98 103 Carbon Dioxide Level 27.4 24.3 Anion Gap 7 9 Blood Urea Nitrogen 6 4 Creatinine 0.78 0.57 Estimat Glomerular Filtration 85 122 Rate Random Glucose 96 102 Lactic Acid Level 1.0 Calcium Level 9.1 8.5 Total Bilirubin 0.9 Aspartate Amino Transf 10 (AST/SGOT) Alanine Aminotransferase 14 (ALT/SGPT) Alkaline Phosphatase 73 Total Protein 7.8 Albumin 3.4 Urine Color YELLOW Urine Turbidity CLEAR Urine pH 6.0 Urine Specific [place] 1.010 Urine Protein NEG Urine Glucose (UA) NEG Urine Ketones 40 Urine Occult Blood SMALL Urine Nitrite NEG Urine Bilirubin NEG Urine Leukocyte Esterase SMALL Urine WBC 3-5 Urine Squamous Epithelial 0-5 Cells Microscopic Urinalysis Comment CULT NOT INDICATED Differential Total Cells 100 Counted Neutrophils % (Manual) 83 Band Neutrophils % 12 Lymphocytes % 2 Monocytes % 3 Neutrophils # (Manual) 26.1 Platelet Estimate NORMAL Platelet Morphology Comment NORMAL Red Cell Morphology Comment NORMAL Date/Time Procedure Status Source Growth 01/20/17 17:00 Gram Stain - Final Resulted Wound Buttock 01/20/17 17:00 Wound Culture Resulted Wound Buttock Pending 01/20/17 16:56 Aerobic Blood Culture - Preliminary Resulted Blood Peripheral NO GROWTH IN 1 DAY 01/20/17 16:56 Anaerobic Blood Culture - Preliminary Resulted Blood Peripheral NO GROWTH IN 1 DAY Result Diagram: 01/21/17 0455 01/21/17 0455 Assessment and Plan Assessment and Plan IMPRESSION Sepsis on presentation due to large R buttock abscess R buttock abscess, with cellulitis, usually due to GPC, but location makes GNR a possible pathogen also Leukocytosis due to infection Fevers RECOMMENDATION Continue IV Vanco Continue IV Azactam for now Follow C/S and adjust Abx I will determine course of Rx once C/S finalized If BC negative, she will be D/C home most likely on oral Abx Follow CBC Monitor temps Monitor progress I will follow along with you Thank you for this consultation Discussed Condition With Explained plan to the patient D/W Dr Denise (Surgery) Gini Otero MD Jan 21, 2017 16:08
[2017-01-22 01:46] VITALS: BP 90/60; PULSE 73; RESP 18; TEMP 96; O2SAT 96
[2017-01-22] MEDS: LACTATED RINGER'S 1000 ML INJ 1,000 ML IV SCH ×3 (02:49→21:28)
[2017-01-22] MEDS: AZTREONAM INJ 1,000 MG in SODIUM CHLORIDE 0.9% INJ 100 ML IV SCH ×2 (02:49→11:26)
[2017-01-22] MEDS ORDERED: PHARMACY ORDERED LAB ONE (05:45)
[2017-01-22] MEDS: VANCOMYCIN INJ 1,000 MG in SODIUM CHLOR 0.9% 250 ML INJ 250 ML IV SCH (06:52)
[2017-01-22 07:08] LABS: HEMATOCRIT 29.7 % (35.0-46.0); MEAN CELL VOLUME 83.7 FL (80.0-100.0); MEAN CORPUSCULAR HEMOGLOBIN 27.6 PG (27.0-34.0); PLATELET COUNT 227 TH/MM3 (150-450); RED BLOOD COUNT 3.55 MIL/MM3 (4.00-5.30); RED CELL DISTRIBUTION WIDTH 13.1 % (11.6-17.2); REVIEW FLAG FINAL
[2017-01-22 07:23] LABS: POTASSIUM 3.7 MEQ/L (3.5-5.1)
[2017-01-22 07:27] LABS: BICARBONATE 26.5 MEQ/L (21.0-32.0)
[2017-01-22 08:28] VITALS: BP 94/71; PULSE 82; RESP 19; TEMP 95.8; O2SAT 98
[2017-01-22] MEDS: SODIUM CHLORIDE 0.9% FLUSH 10 ML FLUSH IV FLUSH SCH ×2 (09:00→21:00)
[2017-01-22] MEDS: MORPHINE SULFATE 4 MG/ML INJ IV PUSH PRN ×3 (11:22→23:00)
[2017-01-22 12:37] VITALS: BP 113/75; PULSE 69; RESP 19; TEMP 96.2; O2SAT 97
--- NOTE | 2017-01-22 13:48 | HHI.PR ---
Subjective Remarks Patient states it hurts to lie in her buttock, blood pressure is running somewhat low but she is not symptomatic. No fevers. Dressing was changed this morning. Pain is currently controlled. Objective Vitals Vital Signs Date Time Temp Pulse Resp B/P Pulse Ox O2 Delivery O2 Flow Rate FiO2 01/22/17 12:37 96.2 69 19 113/75 97 01/22/17 08:28 95.8 82 19 94/71 98 01/22/17 04:56 01/22/17 01:46 96.0 73 18 90/60 96 01/21/17 21:33 96.5 78 16 97/67 94 01/21/17 17:00 97.9 89 18 98/71 100 01/21/17 16:15 96 14 90/54 96 Room Air 01/21/17 16:00 99.8 101 14 92/62 95 Room Air 01/21/17 16:00 101 01/21/17 15:45 95 14 81/53 99 Nasal Cannula 2 01/21/17 15:30 93 14 90/59 100 Nasal Cannula 2 01/21/17 15:21 99.5 102 14 98/61 100 Nasal Cannula 2 01/21/17 15:21 102 I/O 01/21/17 01/21/17 01/21/17 01/22/17 01/22/17 01/22/17 06:59 14:59 22:59 06:59 14:59 22:59 Intake Total 0 ml 800 ml Output Total 30 ml Balance 0 ml 770 ml Intake Oral 0 ml 0 ml Other 800 ml Output Estimated Blood Loss 30 ml # Voids 3 0 3 Result Diagram: 01/22/1745 01/22/17644 Objective Remarks GENERAL: Well-nourished, well-developed young adult female patient. SKIN: Warm and dry. HEAD: Normocephalic. EYES: No scleral icterus. No injection or drainage. NECK: Supple, trachea midline. No JVD or lymphadenopathy. CARDIOVASCULAR: Regular rate and rhythm without murmurs, gallops, or rubs. RESPIRATORY: Breath sounds equal bilaterally. No accessory muscle use. GASTROINTESTINAL: Abdomen soft, non-tender, nondistended. EXTREMITIES: No cyanosis, or edema. NEUROLOGICAL: Awake, alert, and oriented x 3. Non-focal. Procedures Incision and drainage of right buttock abscess on January [address] Denise. A/P Problem List: (1) Sepsis affecting skin ICD Code: A41.9 Status: Acute (2) Abscess of buttock, right ICD Code: L02.31 Status: Acute Assessment and Plan 31-year-old female with sepsis secondary to soft tissue infection with purulent right buttocks abscess and cellulitis. Leukocytosis is worse today. Persistent fever. -Status post I&D by Dr. Denise on January 21. Continue vancomycin and aztreonam , trend white blood cells and monitor temperatures. Infectious disease following. Follow-up cultures. Patient received a dose of vancomycin and aztreonam in the ED. Leukocytosis, check CBC in the morning. Hypotension. Lactic acid is not elevated. Continue IV fluids. DVT PPx: SCDs. Echo Ramey MD Jan 22, 2017 13:48
[2017-01-22 16:57] VITALS: BP 100/77; PULSE 80; RESP 19; TEMP 96.3; O2SAT 97
[2017-01-22] MEDS: VANCOMYCIN INJ 1,250 MG in SODIUM CHLOR 0.9% 250 ML INJ 250 ML IV SCH (17:15)
--- NOTE | 2017-01-22 20:03 | HHI.PR ---
Subjective Subjective Notes Very painful with first dressing change; received narcotic AFTER the packing removed!! Objective Vitals/I&O Vital Signs Date Time Temp Pulse Resp B/P Pulse Ox O2 Delivery O2 Flow Rate FiO2 01/22/17 16:57 96.3 80 19 100/77 97 01/21/17 16:15 Room Air 01/21/17 15:45 2 Labs Laboratory Tests Test 01/22/17 06:45 White Blood Count 24.0 Red Blood Count 3.55 Hemoglobin 9.8 Hematocrit 29.7 Mean Corpuscular Volume 83.7 Mean Corpuscular Hemoglobin 27.6 Mean Corpuscular Hemoglobin 33.0 Concent Red Cell Distribution Width 13.1 Platelet Count 227 Mean Platelet Volume 8.4 Sodium Level 139 Potassium Level 3.7 Chloride Level 107 Carbon Dioxide Level 26.5 Anion Gap 6 Blood Urea Nitrogen 5 Creatinine 0.47 Estimat Glomerular Filtration 153 Rate Random Glucose 149 Calcium Level 8.6 Vancomycin Level Trough 4.1 Date/Time Procedure Status Source Growth 01/20/17 17:00 Gram Stain - Final Resulted Wound Buttock 01/20/17 17:00 Wound Culture - Preliminary Resulted S. Aureus Mrsa 01/20/17 16:56 Aerobic Blood Culture - Preliminary Resulted Blood Peripheral NO GROWTH IN 2 DAYS 01/20/17 16:56 Anaerobic Blood Culture - Preliminary Resulted Blood Peripheral NO GROWTH IN 2 DAYS Lungs: Clear Abdomen: Non-distended Narrative Exam Wound with dressing in place; no bleeding A/P Assessment and Plan POD #1 I&D RIGHT buttock abscess Continue BID dressing changes Home with [facility] Tuesday or Tuesday (01/24 or 01/25) Prince Denise MD Jan 22, 2017 20:03
[2017-01-22 20:55] VITALS: BP 116/70; PULSE 86; RESP 20; TEMP 98.8; O2SAT 98
[2017-01-23 00:32] VITALS: BP 113/81; PULSE 74; RESP 22; TEMP 97.8; O2SAT 100
[2017-01-23] MEDS: ACETAMINOPHEN/HYDROcodone 325 MG/7.5 MG TAB PO PRN ×3 (00:50→21:57)
[2017-01-23] MEDS: AZTREONAM INJ 1,000 MG in SODIUM CHLORIDE 0.9% INJ 100 ML IV SCH ×2 (01:43→12:00)
[2017-01-23] MEDS: VANCOMYCIN INJ 1,250 MG in SODIUM CHLOR 0.9% 250 ML INJ 250 ML IV SCH ×2 (04:00→17:42)
[2017-01-23] MEDS: LACTATED RINGER'S 1000 ML INJ 1,000 ML IV SCH (04:57)
[2017-01-23 05:57] LABS: AUTOMATED NEUTROPHIL # 13.6 TH/MM3 (1.8-7.7); BASOPHIL # 0.1 TH/MM3 (0-0.2); BASOPHIL % 0.3 % (0.0-2.0); EOSINOPHIL # 0.1 TH/MM3 (0-0.4); EOSINOPHIL % 0.6 % (0.0-4.0); HEMATOCRIT 29.6 % (35.0-46.0); HEMO FLAGS AUTO DIFF; LYMPH % 12.8 % (9.0-44.0); LYMPHOCYTE # 2.2 TH/MM3 (1.0-4.8); MEAN CORPUSCULAR HGB CONC 32.5 % (32.0-36.0); MONO % 4.5 % (0.0-8.0); NEUT % 81.8 % (16.0-70.0); PLATELET COUNT 273 TH/MM3 (150-450); RED BLOOD COUNT 3.57 MIL/MM3 (4.00-5.30); WHITE BLOOD COUNT 16.8 TH/MM3 (4.0-11.0)
[2017-01-23 06:11] LABS: POTASSIUM 3.3 MEQ/L (3.5-5.1)
[2017-01-23 06:17] LABS: BICARBONATE 26.8 MEQ/L (21.0-32.0)
[2017-01-23 06:23] LABS: PLATELET ESTIMATE SMEAR NORMAL (NORMAL); PLATELET MORPHOLOGY NORMAL (NORMAL); SCAN/DIFF AUTO DIFF CONFIRMED
[2017-01-23 08:00] VITALS: BP 110/73; PULSE 76; RESP 18; TEMP 97.4; O2SAT 98
[2017-01-23] MEDS: SODIUM CHLORIDE 0.9% FLUSH 10 ML FLUSH IV FLUSH SCH ×2 (09:00→21:57)
[2017-01-23 12:00] VITALS: BP 114/78; PULSE 73; RESP 20; TEMP 97.8; O2SAT 100
--- NOTE | 2017-01-23 13:18 | HHI.PR ---
Subjective Remarks The patient was seen at 11:15 AM. She states her buttock pain is improving. Her white blood cell count is trending down nicely. No fevers. No chills. Objective Vitals Vital Signs Date Time Temp Pulse Resp B/P (MAP) Pulse Ox O2 Delivery O2 Flow Rate FiO2 01/23/17 04:20 01/23/17 00:32 97.8 74 22 113/81 (92) 100 01/22/17 20:55 98.8 86 20 116/70 (85) 98 01/22/17 16:57 96.3 80 19 100/77 (85) 97 I/O 01/22/17 01/22/17 01/22/17 01/23/17 01/23/17 01/23/17 07:00 15:00 23:00 07:00 15:00 23:00 # Voids 3 Result Diagram: 01/23/17 0549 01/23/17 0549 Objective Remarks GENERAL: Well-nourished, well-developed young adult female patient. SKIN: Warm and dry. HEAD: Normocephalic. EYES: No scleral icterus. No injection or drainage. NECK: Supple, trachea midline. No JVD or lymphadenopathy. CARDIOVASCULAR: Regular rate and rhythm without murmurs, gallops, or rubs. RESPIRATORY: Breath sounds equal bilaterally. No accessory muscle use. GASTROINTESTINAL: Abdomen soft, non-tender, nondistended. EXTREMITIES: No cyanosis, or edema. NEUROLOGICAL: Awake, alert, and oriented x 3. Non-focal. Procedures Incision and drainage of right buttock abscess on January [address] Denise. A/P Problem List: (1) Sepsis affecting skin ICD Code: A41.9 - Sepsis, unspecified organism Status: Acute (2) Abscess of buttock, right ICD Code: L02.31 - Cutaneous abscess of buttock Status: Acute Assessment and Plan 31-year-old female with sepsis secondary to soft tissue infection with purulent right buttocks abscess and cellulitis. Sepsis resolving. -Status post I&D by Dr. Denise on January 21. Continue vancomycin and aztreonam , trend white blood cells and monitor temperatures. Infectious disease following. Culture showing MRSA, and strep not AB or D. Leukocytosis, improving, check CBC in the morning. Hypotension. Lactic acid is not elevated. Improved. Hep-Lock IV. DVT PPx: SCDs. Discharge Planning Likely discharge home on Tuesday or Tuesday, with home health care for dressing changes. Echo Ramey MD Jan 23, 2017 13:18
--- NOTE | 2017-01-23 13:20 | HHI.FF ---
Face to Face Verification Diagnosis: (1) Abscess of buttock, right Home Health Nursing Order: Wound care and dressing changes I have seen patient Bri Juárez on 01/23/17. My clinical findings support the need for the requested home health care services because: Need for psychosocial assistance I certify that my clinical findings support that this patient is homebound because: Need for psychosocial assistance Echo Ramey MD Jan 23, 2017 13:20
[2017-01-23] MEDS: MORPHINE SULFATE 4 MG/ML INJ IV PUSH PRN (15:47)
[2017-01-23 16:00] VITALS: BP 118/75; PULSE 60; RESP 18; TEMP 97.8; O2SAT 98
[2017-01-23] MEDS: LACTATED RINGER'S 1000 ML IV PRN (17:48)
[2017-01-23 20:31] VITALS: BP 112/77; PULSE 74; RESP 18; TEMP 98.6; O2SAT 98
[2017-01-24 00:15] VITALS: BP 96/60; PULSE 64; RESP 16; TEMP 98.8; O2SAT 96
[2017-01-24] MEDS: AZTREONAM INJ 1,000 MG in SODIUM CHLORIDE 0.9% INJ 100 ML IV SCH (00:38)
[2017-01-24] MEDS: LACTATED RINGER'S 1000 ML IV PRN (00:42)
[2017-01-24] MEDS ORDERED: PHARMACY ORDERED LAB ONE (03:45)
[2017-01-24] MEDS: ACETAMINOPHEN/HYDROcodone 325 MG/7.5 MG TAB PO PRN ×2 (04:05→09:22)
[2017-01-24] MEDS: VANCOMYCIN INJ 1,250 MG in SODIUM CHLOR 0.9% 250 ML INJ 250 ML IV SCH (04:05)
[2017-01-24 04:19] LABS: AUTOMATED NEUTROPHIL # 6.2 TH/MM3 (1.8-7.7); BASOPHIL # 0.1 TH/MM3 (0-0.2); BASOPHIL % 0.9 % (0.0-2.0); EOSINOPHIL # 0.2 TH/MM3 (0-0.4); EOSINOPHIL % 1.8 % (0.0-4.0); HEMATOCRIT 31.1 % (35.0-46.0); HEMO FLAGS DIFF FINAL; LYMPH % 23.6 % (9.0-44.0); LYMPHOCYTE # 2.2 TH/MM3 (1.0-4.8); MEAN CORPUSCULAR HEMOGLOBIN 27.4 PG (27.0-34.0); MEAN CORPUSCULAR HGB CONC 32.6 % (32.0-36.0); MONO % 6.6 % (0.0-8.0); NEUT % 67.1 % (16.0-70.0); PLATELET COUNT 280 TH/MM3 (150-450); RED BLOOD COUNT 3.71 MIL/MM3 (4.00-5.30); RED CELL DISTRIBUTION WIDTH 13.9 % (11.6-17.2); WHITE BLOOD COUNT 9.3 TH/MM3 (4.0-11.0)
[2017-01-24 04:28] VITALS: RESP 20
[2017-01-24 04:28] LABS: POTASSIUM 3.2 MEQ/L (3.5-5.1)
[2017-01-24 04:31] LABS: BICARBONATE 27.4 MEQ/L (21.0-32.0)
[2017-01-24] MEDS: MORPHINE SULFATE 4 MG/ML INJ IV PUSH PRN ×2 (05:43→13:12)
[2017-01-24 08:00] VITALS: BP 107/68; PULSE 67; RESP 20; TEMP 98; O2SAT 100
--- NOTE | 2017-01-24 08:00 | MP ---
cc: DEON HILL M.D. DATE OF SURGERY 01/21/2017 PROCEDURE Incision and drainage right buttocks abscess. PREOPERATIVE DIAGNOSIS Incompletely drained right buttocks abscess. POSTOPERATIVE DIAGNOSIS Incompletely drained right buttocks abscess. ANESTHESIA General endotracheal. SURGEON MD Howie ESTIMATED BLOOD LOSS Less than 30 mL. FLUIDS 500 mL crystalloid. COMPLICATIONS None. DRAINS None. SPECIMEN None. PROCEDURE IN DETAIL The patient was marked in the holding area by the undersigned and confirmed by the patient. She was taken to the operating room and placed on the operating table in the supine position. After an adequate level of anesthesia was achieved, the patient was placed in the left lateral decubitus position on a beanbag. The right buttock was prepped and draped in the field after removing packing. Time-out was taken confirming the correct patient site and procedure to be performed. The wound was probed with a hemostat and incision made over tunneling that had occurred to the patient to the 3 o'clock position and the 12 o'clock position. A small 6 o'clock tunnel was also opened slightly. These were then irrigated copiously and all purulent material was removed. Care was taken to make sure that there was no further tracking and when this was completed the wound was packed with 4-inch Betadine-soaked gauze. The wound was dressed with 4x4s and an ABD pad. She was extubated and taken back to the recovery room in stable condition. Sponge, needle and instrument counts were reported be correct. MD KELLY Guzmán/KAITLIN /7:14 PM /7:53 AM
[2017-01-24] MEDS: SODIUM CHLORIDE 0.9% FLUSH 10 ML FLUSH IV FLUSH SCH (09:00)
--- NOTE | 2017-01-24 09:40 | HHI.PR ---
Subjective Remarks Patient is having moderate pain in the buttock. She has been afebrile. She is hoping to go home today. She states that her fianc has been present for all dressing changes and can perform the dressing changes in the event that home health care is not available. Objective Vitals Vital Signs Date Time Temp Pulse Resp B/P (MAP) Pulse Ox O2 Delivery O2 Flow Rate FiO2 01/24/17 08:00 98.0 67 20 107/68 (81) 100 01/24/17 04:28 20 01/24/17 00:15 98.8 64 16 96/60 (72) 96 01/23/17 20:31 98.6 74 18 112/77 (89) 98 01/23/17 16:00 97.8 60 18 118/75 (89) 98 01/23/17 12:00 97.8 73 20 114/78 (90) 100 I/O 01/23/17 01/23/17 01/23/17 01/24/17 01/24/17 01/24/17 07:00 15:00 23:00 07:00 15:00 23:00 Intake Total 650 ml 1213 ml 882 ml Balance 650 ml 1213 ml 882 ml Intake Oral 650 ml IV Total 1213 ml 882 ml # Voids 7 1 1 # Bowel Movements 1 0 Result Diagram: 01/24/17 0345 01/24/17344 Objective Remarks GENERAL: Well-nourished, well-developed young adult female patient. SKIN: Warm and dry. HEAD: Normocephalic. EYES: No scleral icterus. No injection or drainage. NECK: Supple, trachea midline. No JVD or lymphadenopathy. CARDIOVASCULAR: Regular rate and rhythm without murmurs, gallops, or rubs. RESPIRATORY: Breath sounds equal bilaterally. No accessory muscle use. GASTROINTESTINAL: Abdomen soft, non-tender, nondistended. EXTREMITIES: No cyanosis, or edema. NEUROLOGICAL: Awake, alert, and oriented x 3. Non-focal. Procedures Incision and drainage of right buttock abscess on January [address] Denise. A/P Problem List: (1) Sepsis affecting skin ICD Code: A41.9 - Sepsis, unspecified organism Status: Acute (2) Abscess of buttock, right ICD Code: L02.31 - Cutaneous abscess of buttock Status: Acute Assessment and Plan 31-year-old female with sepsis secondary to soft tissue infection with purulent right buttocks abscess and cellulitis. Sepsis resolving. -Status post I&D by Dr. Denise on January 21. Continue vancomycin and aztreonam , trend white blood cells and monitor temperatures. Leukocytosis has resolved. Infectious disease following. Culture showing MRSA sensitive to Levaquin, and strep not AB or D, sensitivities pending. Discussed with Dr. Otero/ infectious disease -awaiting sensitivity to the streptococcus bacteria, possible discharge on clindamycin and Levaquin today or tomorrow, with wound care. Leukocytosis, resolved. Hypotension. Resolved. DVT PPx: SCDs. Discharge Planning Discharge home today or tomorrow. Echo Ramey MD Jan 24, 2017 09:40
--- NOTE | 2017-01-24 09:53 | HHI.PR ---
Subjective Subjective Notes Resting in bed Dressing changed at 0600 Objective Vitals/I&O Vital Signs Date Time Temp Pulse Resp B/P (MAP) Pulse Ox O2 Delivery O2 Flow Rate FiO2 01/24/17 08:00 98.0 67 20 107/68 (81) 100 01/21/17 16:15 Room Air 01/21/17 15:45 2 Labs Laboratory Tests Test 01/24/17 03:45 White Blood Count 9.3 Red Blood Count 3.71 Hemoglobin 10.2 Hematocrit 31.1 Mean Corpuscular Volume 84.0 Mean Corpuscular Hemoglobin 27.4 Mean Corpuscular Hemoglobin Concent 32.6 Red Cell Distribution Width 13.9 Platelet Count 280 Mean Platelet Volume 8.2 Neutrophils (%) (Auto) 67.1 Lymphocytes (%) (Auto) 23.6 Monocytes (%) (Auto) 6.6 Eosinophils (%) (Auto) 1.8 Basophils (%) (Auto) 0.9 Neutrophils # (Auto) 6.2 Lymphocytes # (Auto) 2.2 Monocytes # (Auto) 0.6 Eosinophils # (Auto) 0.2 Basophils # (Auto) 0.1 CBC Comment DIFF FINAL Differential Comment Blood Urea Nitrogen 6 Creatinine 0.46 Random Glucose 98 Calcium Level 7.7 Sodium Level 138 Potassium Level 3.2 Chloride Level 104 Carbon Dioxide Level 27.4 Anion Gap 7 Estimat Glomerular Filtration Rate 156 Vancomycin Level Trough 4.9 Date/Time Source Procedure Growth Status 01/20/17 16:56 Blood Peripheral Aerobic Blood Culture - Preliminary NO GROWTH IN 3 DAYS Resulted 01/20/17 16:56 Blood Peripheral Anaerobic Blood Culture - Preliminary NO GROWTH IN 3 DAYS Resulted 01/20/17 17:00 Wound Buttock Gram Stain - Final Resulted 01/20/17 17:00 Wound Culture - Preliminary S. Aureus Mrsa Strep Not A,B D Resulted Cardiovascular: Regular Lungs: Clear Abdomen: Non-distended, Non-tender Extremities: Other (see below ) Narrative Exam RIGHT buttocks----packed without any erythremia around incision A/P Assessment and Plan 31 year old female POD3 I&D RIGHT buttocks -Continue dressing changes BID -CM consult for HHC -Pain control -Tolerating regular diet -Antibiotics per ID -GS clear for DC; follow up with Dr. Denise next Tuesday Attending Note - Dr. Denise wound is clean The exam, history, and the medical decision-making described in the above note were completed with the assistance of the mid-level provider. I reviewed and agree with the findings presented. I attest that I had a [id number] encounter with the patient on the same day, and personally performed and documented my assessment and findings in the medical record. Yessenia Marquez Jan 24, 2017 09:53 Prince Denise MD Feb 07, 2017 17:15
--- NOTE | 2017-01-24 10:22 | HHI.IDPN ---
Subjective Subjective Remarks Patient is a 31-year-old female, presented to the hospital complaining of fever and chills, and increasing pain and swelling on her right buttock. She noted a pimple on her face, as well as a pimple on her right buttock. This was about 34 days prior to admission. The one on her face got better, but the one on her right buttocks started increasing in size, and it was becoming ankle. It started having some drainage. On the day of admission she started getting fevers and chills, generalized malaise, and some lightheadedness. This prompted her to go to the emergency room for further evaluation and treatment. Patient states that she initially gets some pimple in the suprapubic region when she shaves. She has never had any problem with big boils in the past. She also had some nausea on the day of admission. She denies any respiratory complaint, sore throat, diarrhea, or any urinary complaints. Since admission, she has had high fevers. Her WBC was 22,000, and it went up to 27,000 today. Patient was seen by surgery, and taken to the operating room today, and had I and D of a large abscess in the right buttock. Notes reviewed No further fever WBC down to normal C/S MRSA and Strep Antibiotics Vancomycin Azactam Lines PIV Past Medical History No DM Unremarkable Allergies: Coded Allergies: penicillin G (Unverified Allergy, Severe, RASH, 01/20/17) Objective . Vital Signs Date Time Temp Pulse Resp B/P (MAP) Pulse Ox O2 Delivery O2 Flow Rate FiO2 01/24/17 08:00 98.0 67 20 107/68 (81) 100 01/24/17 04:28 20 01/24/17 00:15 98.8 64 16 96/60 (72) 96 01/23/17 20:31 98.6 74 18 112/77 (89) 98 01/23/17 16:00 97.8 60 18 118/75 (89) 98 01/23/17 12:00 97.8 73 20 114/78 (90) 100 . Laboratory Tests Test 01/23/17 05:49 01/24/17 03:45 White Blood Count 16.8 TH/MM3 9.3 TH/MM3 Red Blood Count 3.57 MIL/MM3 3.71 MIL/MM3 Hemoglobin 9.6 GM/DL 10.2 GM/DL Hematocrit 29.6 % 31.1 % Mean Corpuscular Volume 83.0 FL 84.0 FL Mean Corpuscular Hemoglobin 27.0 PG 27.4 PG Mean Corpuscular Hemoglobin Concent 32.5 % 32.6 % Red Cell Distribution Width 13.0 % 13.9 % Platelet Count 273 TH/MM3 280 TH/MM3 Mean Platelet Volume 8.5 FL 8.2 FL Neutrophils (%) (Auto) 81.8 % 67.1 % Lymphocytes (%) (Auto) 12.8 % 23.6 % Monocytes (%) (Auto) 4.5 % 6.6 % Eosinophils (%) (Auto) 0.6 % 1.8 % Basophils (%) (Auto) 0.3 % 0.9 % Neutrophils # (Auto) 13.6 TH/MM3 6.2 TH/MM3 Lymphocytes # (Auto) 2.2 TH/MM3 2.2 TH/MM3 Monocytes # (Auto) 0.8 TH/MM3 0.6 TH/MM3 Eosinophils # (Auto) 0.1 TH/MM3 0.2 TH/MM3 Basophils # (Auto) 0.1 TH/MM3 0.1 TH/MM3 CBC Comment AUTO DIFF DIFF FINAL Differential Comment AUTO DIFF CONFIRMED Platelet Estimate NORMAL Platelet Morphology Comment NORMAL Red Cell Morphology Comment NORMAL Laboratory Tests Test 01/23/17 05:49 01/24/17 03:45 Blood Urea Nitrogen 4 MG/DL 6 MG/DL Creatinine 0.47 MG/DL 0.46 MG/DL Random Glucose 118 MG/DL 98 MG/DL Calcium Level 8.4 MG/DL 7.7 MG/DL Sodium Level 140 MEQ/L 138 MEQ/L Potassium Level 3.3 MEQ/L 3.2 MEQ/L Chloride Level 106 MEQ/L 104 MEQ/L Carbon Dioxide Level 26.8 MEQ/L 27.4 MEQ/L Anion Gap 7 MEQ/L 7 MEQ/L Estimat Glomerular Filtration Rate 153 ML/MIN 156 ML/MIN Physical Exam GENERAL: awake and alert, not in respiratory distress. SKIN: Warm and dry. No generalized rash EYES: [place] conjunctiva. No petechia or hemorrhage. No scleral icterus. No injection or drainage. EARS, NOSE AND THROAT: Nose without bleeding or purulent nasal discharge. No oral lesions noted. NECK: Trachea midline. Supple and not tender, no meningeal signs CARDIOVASCULAR: Regular rate and rhythm. No murmurs, rubs or gallops heard RESPIRATORY: Clear to auscultation. Breath sounds equal bilaterally. No rales , wheezing or rhonchi. Decreased breath sounds at the bases. ABDOMEN: Soft, obese,, non-tender, nondistended. Bowel sounds present and normoactive. No guarding. No rebound. EXTREMITIES: No clubbing, cyanosis, or edema. No calf tenderness. Well perfused and warm. BACK: Long incision R buttocks, with packing, improving induration noted NEUROLOGICAL: Non-focal PSYCHIATRIC: Normal affect, calm and cooperative. LINE: No evidence of infection Assessment & Plan Remarks IMPRESSION Sepsis on presentation due to large R buttock abscess, resolved R buttock abscess, with cellulitis, MRSA and Strep Leukocytosis due to infection, resolved Fevers, resolved RECOMMENDATION Continue IV Vanco Stop IV Azactam If Strep S to Clinda D/C home today or tomorrow on Clinda 300 TID and Levaquin x 14 days Wound care per surgery Add probiotics D/W patient D/W Gini Damon MD Jan 24, 2017 10:22
[2017-01-24] MEDS ORDERED: LACTCHW3 CHEW (10:51)
[2017-01-24] MEDS ORDERED: LEVO750T3 PO (10:51)
[2017-01-24] MEDS ORDERED: CLIN1CAP6 PO (10:51)
[2017-01-24] MEDS ORDERED: ULTR50TA5 PO (10:51)
--- NOTE | 2017-01-24 10:53 | HHI.DS ---
Discharge Summary Admission Date Jan 20, 2017 at 17:53 Discharge Date: Jan 24, 2017 Admitting Diagnosis ABCESS OF BUTTOCK, SEPSIS (1) Sepsis affecting skin ICD Code: A41.9 - Sepsis, unspecified organism Status: Acute (2) Abscess of buttock, right ICD Code: L02.31 - Cutaneous abscess of buttock Status: Acute Procedures Incision and drainage of right buttock abscess on January [address] Denise. Brief History - From Admission 31-year-old female with no prior medical history presents to the emergency room with complaint of right buttocks abscess, fevers, general malaise. Patient reports she noticed a pimple involving the right buttock about 2 days ago. There has been increasing swelling and has become severely painful today. She did notice a small amount of drainage. Today she started experiencing fevers, chills, lightheadedness which prompted the emergency room visit. Initial workup in the emergency room found a right buttock abscess. Status post I&D with purulent drainage. Patient meets criteria for sepsis and I was asked to admit for IV antibiotics. CBC/BMP: 01/24/17 0345 01/24/17 0345 Significant Findings Laboratory Tests Test 01/22/17 06:45 01/23/17 05:49 01/24/17 03:45 White Blood Count 24.0 TH/MM3 (4.0-11.0) 16.8 TH/MM3 (4.0-11.0) Red Blood Count 3.55 MIL/MM3 (4.00-5.30) 3.57 MIL/MM3 (4.00-5.30) 3.71 MIL/MM3 (4.00-5.30) Hemoglobin 9.8 GM/DL (11.6-15.3) 9.6 GM/DL (11.6-15.3) 10.2 GM/DL (11.6-15.3) Hematocrit 29.7 % (35.0-46.0) 29.6 % (35.0-46.0) 31.1 % (35.0-46.0) Blood Urea Nitrogen 5 MG/DL (7-18) 4 MG/DL (7-18) 6 MG/DL (7-18) Creatinine 0.47 MG/DL (0.50-1.00) 0.47 MG/DL (0.50-1.00) 0.46 MG/DL (0.50-1.00) Random Glucose 149 MG/DL (74-106) 118 MG/DL (74-106) Vancomycin Level Trough 4.1 MCG/ML (5.0-10.0) 4.9 MCG/ML (5.0-10.0) Neutrophils (%) (Auto) 81.8 % (16.0-70.0) Neutrophils # (Auto) 13.6 TH/MM3 (1.8-7.7) Calcium Level 8.4 MG/DL (8.5-10.1) 7.7 MG/DL (8.5-10.1) Potassium Level 3.3 MEQ/L (3.5-5.1) 3.2 MEQ/L (3.5-5.1) PE at Discharge GENERAL: Well-nourished, well-developed young adult female patient. SKIN: Warm and dry. HEAD: Normocephalic. EYES: No scleral icterus. No injection or drainage. NECK: Supple, trachea midline. No JVD or lymphadenopathy. CARDIOVASCULAR: Regular rate and rhythm without murmurs, gallops, or rubs. RESPIRATORY: Breath sounds equal bilaterally. No accessory muscle use. GASTROINTESTINAL: Abdomen soft, non-tender, nondistended. EXTREMITIES: No cyanosis, or edema. NEUROLOGICAL: Awake, alert, and oriented x 3. Non-focal. Hospital Course 31-year-old female with sepsis secondary to soft tissue infection with purulent right buttocks abscess and cellulitis. Sepsis resolved. -Status post I&D by Dr. Denise on January 21. Continue vancomycin and aztreonam , trend white blood cells and monitor temperatures. Leukocytosis has resolved. Infectious disease following. Culture showing MRSA sensitive to Levaquin, and strep not AB or D, sensitivities pending. Discussed with Dr. Otero/ infectious disease - discharge on clindamycin and Levaquin with wound care. Pt Condition on Discharge: Stable Discharge Disposition: Discharge Home Discharge Time: > 30 minutes Discharge Instructions DIET: Follow Instructions for: As Tolerated, No Restrictions Follow up Referrals: Surgical - 01/31/17 with Prince Denise MD New Medications: Clindamycin (Clindamycin) 300 Mg Cap 300 MG PO TID for Infection for 14 Days, CAP 0 Refills Lactobacillus Acidophilus (Lactinex) 1 Chew 1 TAB CHEW TID for Nutritional Supplement for 14 Days, TAB 0 Refills Levofloxacin (Levofloxacin) 750 Mg Tablet 750 MG PO DAILY for Infection, #14 TAB 0 Refills Tramadol (Ultram) 50 Mg Tab 50 MG PO Q8H PRN for PAIN, #30 TAB 0 Refills Echo Ramey MD Jan 24, 2017 10:53
[2017-01-24 12:00] VITALS: BP 108/79; PULSE 68; RESP 20; TEMP 97.1; O2SAT 100
[2017-01-24 16:00] VITALS: BP 144/72; PULSE 61; RESP 16; TEMP 97.7; O2SAT 95
[2017-01-24] MEDS ORDERED: VANCOMYCIN INJ 1,400 MG in SODIUM CHLORID 0.9% 500 ML INJ 500 ML IV SCH (16:00)
--- NOTE | 2017-01-25 16:18 | HHI.FF ---
Face to Face Verification Diagnosis: (1) Abscess of buttock, right Home Health Nursing Order: Wound care and dressing changes Instructions: RIGHT buttocks--- wet to dry dressing; needs to be changed BID; once daily by nursing and once by patient/family; okay to shower in between dressing changes - --remove packing prior I have seen patient Bri Juárez on 01/25/17. My clinical findings support the need for the requested home health care services because: Limited ability to care for self High risk of falls I certify that my clinical findings support that this patient is homebound because: Post-op weakness Yessenia Marquez Jan 25, 2017 16:18
[2017-01-26] MEDS ORDERED: VANCOMYCIN TROUGH ONE (03:45)
--- NOTE | 2017-01-26 09:08 | HHI.FF ---
Face to Face Verification Diagnosis: (1) Abscess of buttock, right Home Health Nursing Instructions: RIGHT buttocks--- wet to dry dressing; needs to be changed BID; once daily by nursing and once by patient/family; okay to shower in between dressing changes - --remove packing prior Duration: 21 days I have seen patient Bri Juárez on 01/26/17. My clinical findings support the need for the requested home health care services because: Limited ability to care for self High risk of falls I certify that my clinical findings support that this patient is homebound because: Post-op weakness Prince Denise MD Jan 26, 2017 09:08
--- NOTE | 2017-01-28 17:11 | HHI.FF ---
Face to Face Verification Diagnosis: (1) Abscess of buttock, right Home Health Nursing Order: Wound care and dressing changes Instructions: RIGHT buttocks--- wet to dry dressing; needs to be changed BID; family taught and providing wound care Duration: 21 days I have seen patient Bri Juárez on 01/28/17. My clinical findings support the need for the requested home health care services because: Limited ability to care for self High risk of falls I certify that my clinical findings support that this patient is homebound because: Post-op weakness Yessenia Marquez Jan 28, 2017 17:11
== END 2017-01-24 17:48 | disposition home health service (06) | DRG 872 ==
LOC: PHED 15:20 → PHEDA 17:53 → PH3A 21:48
PROVIDERS: ADMIT Family Medicine; ATTEND Family Medicine
PROC: 0Y900ZX Drainage of Right Buttock, Open Approach, Diagnostic (ICD-10-PCS; principal; 2017-01-20)
PROC: 0HD8XZZ Extraction of Buttock Skin, External Approach (ICD-10-PCS; 2017-01-21)
PROC: 0Y900ZZ Drainage of Right Buttock, Open Approach (ICD-10-PCS; 2017-01-21)
DX: A41.9 Sepsis, unspecified organism (principal); L02.31 Cutaneous abscess of buttock; L03.317 Cellulitis of buttock; F41.9 Anxiety disorder, unspecified; B95.62 Methicillin resistant Staphylococcus aureus infection as the cause of diseases classified elsewhere; Z88.0 Allergy status to penicillin; Z87.891 Personal history of nicotine dependence
CPT/HCPCS: 10061; 76937; 80048; 80053; 80202; 81001; 83605; 85007; 85025; 85027; 86403; 87040; 87070; 87147; 87186; 87205; 96365; 96375; J1100; J1170; J2175; J2250; J2270; J2405; J3010; J3370; J7030; J7040; J7050; J7120

== ENCOUNTER 2017-01-28 10:08 | Emergency (ER) | payer MEDICAID ==
[~2017-01-28] VITALS: Ht 162.6 cm; Wt 86.0 kg
[~2017-01-28 10:08] MED LIST changes: +CLIN1CAP6 PO; -IBUP600T26 PO; +LACTCHW3 CHEW; +LEVO750T3 PO; +ULTR50TA5 PO
[2017-01-28 10:12] VITALS: BP 121/67; PULSE 80; RESP 16; TEMP 97.8; O2SAT 99
[2017-01-28] MEDS ORDERED: MORPHINE SULFATE 4 MG/ML INJ IM ONE (11:45)
--- NOTE | 2017-01-28 11:46 | PD ---
HPI Chief Complaint: wound Time Seen by Provider: 11:21 Travel History International Travel<30 days: No Contact w/Intl Traveler<30days: No Traveled to known affect area: No History of Present Illness HPI 31-year-old female presents to the emergency room for dressing change of an abscess on her right buttocks. Patient was admitted 8 days ago for abscess to her buttocks that caused sepsis and required surgical incision and drainage. Her surgeon is Dr. Denise. She was discharged 4 days ago with clindamycin, Levaquin, and tramadol. She has been taking her antibiotics as prescribed. She followed up with her surgeon 2 days after discharge and had a dressing change then. Her boyfriend changed her dressing yesterday. They're having difficulty getting home health to come to her home so they recommended she come to the emergency room for dressing change today. She denies any fever, chills, nausea, or vomiting. States she feels well otherwise. Denies significant pain except during dressing changes. PFSH Past Medical History Blood Disorders: No Anxiety: Yes (no meds) Diminished Hearing: No Immunizations Current: No : 1 Para: 1 Past Surgical History AICD: No Joint Replacement: No Pacemaker: No Social History Alcohol Use: No Tobacco Use: No (quit 5 yrs ago- smoked 1 pack cigs every few days) Substance Use: No Allergies-Medications (Allergen,Severity, Reaction): Coded Allergies: penicillin G (Unverified Allergy, Severe, Hives, 01/28/17) Reported Meds & Prescriptions Reported Meds & Active Scripts Active Ultram (Tramadol HCl) 50 Mg Tab 50 Mg PO Q8H PRN Lactinex (Lactobacillus Acidophilus) 1 Chew 1 Tab CHEW TID 14 Days Levofloxacin 750 Mg Tablet 750 Mg PO DAILY Clindamycin (Clindamycin HCl) 300 Mg Cap 300 Mg PO TID 14 Days Review of Systems Except as stated in HPI: all other systems reviewed are Neg Physical Exam Narrative GENERAL: Well-nourished, well-developed female in no acute distress. Afebrile. Ambulatory. SKIN: Focused skin assessment warm/dry. There is a 9 cm long gaping surgical wound approximately 3-4 cm deep on the right buttocks with packing in place. Mild induration to the superior buttocks. No significant erythema or warmth. No lymphangitis. No tenderness to palpation of surrounding buttocks. Wound is extremely tender to palpation. No purulent drainage. HEAD: Atraumatic. Normocephalic. EYES: Pupils equal and round. No scleral icterus. No injection or drainage. NECK: Trachea midline. No JVD. CARDIOVASCULAR: Regular rate and rhythm. No murmur appreciated. RESPIRATORY: No accessory muscle use. Clear to auscultation. Breath sounds equal bilaterally. NEUROLOGICAL: Awake and alert. No obvious cranial nerve deficits. Motor grossly within normal limits. Normal speech. PSYCHIATRIC: Appropriate mood and affect; insight and judgment normal. Data Data Last Documented VS Vital Signs Date Time Temp Pulse Resp B/P (MAP) Pulse Ox O2 Delivery O2 Flow Rate FiO2 01/28/17 10:12 97.8 80 16 121/67 (85) 99 Room Air Orders Orders Morphine Inj (Morphine Inj) (01/28/17 11:45) [facility] Medical Decision Making Medical Screen Exam Complete: Yes Emergency Medical Condition: Yes Medical Record Reviewed: Yes Differential Diagnosis Abscess, sepsis, dressing change, wound infection Narrative Course 31-year-old female presents to the emergency room for dressing change. Patient was admitted 8 days ago for sepsis caused by abscess on the right buttocks. Discharged 4 days ago with Levaquin and clindamycin. Taking antibiotics as prescribed. She had a dressing change at her surgeon's office 2 days ago in her boyfriend changed her dressing yesterday. Denies system signs of infection. She is afebrile and well-appearing in the emergency room. Physical exam reveals a 9 cm long gaping surgical wound approximately 3-4 cm deep on the right buttocks with packing in place. Mild induration to the superior buttocks. No significant erythema or warmth. No lymphangitis. No tenderness to palpation of surrounding buttocks. Wound is extremely tender to palpation. No purulent drainage. Dressing was changed and repacked in the emergency room. Patient was given morphine for pain during dressing change. Our caseworker is involved and working on getting patient [facility] for outpatient wound care. Patient states her surgeon told her she only needed daily dressing changes but discharge instructions state "wet to dry dressing; needs to be changed BID; once daily by nursing and once by patient/family; okay to shower in between dressing changes ---remove packing prior." At this time infection seems completely controlled and patient can safely be discharged with her current oral antibiotic regimen; no indication for admission. She was told to follow-up with her surgeon as planned and return to the emergency room for worsening symptoms. She understands and agrees to plan. Diagnosis Primary Impression: Dressing change or removal, surgical wound Referrals: Primary Care Physician Additional Instructions: Rest and drink plenty of fluids. Continue clindamycin and Levaquin as directed, until gone. Dressing changes daily, as recommended by surgeon. Follow up with a primary care physician. Return to emergency room for worsening symptoms, as discussed. Med/Other Pt SpecificInfo: Prescription(s) given Disposition: 01 DISCHARGE HOME Condition: Stable Margaret Carter Jan 28, 2017 11:46
== END 2017-01-28 12:27 | disposition home or self-care (01) ==
LOC: PHED 10:08
DX: L02.31 Cutaneous abscess of buttock (principal); Z87.891 Personal history of nicotine dependence
CPT/HCPCS: 96372; 99284; J2270

== ENCOUNTER 2017-03-29 09:49 | Emergency (ER) | payer MEDICAID ==
[2017-03-29 09:54] VITALS: BP 128/85; PULSE 88; RESP 15; TEMP 97.2; O2SAT 100
--- NOTE | 2017-03-29 10:24 | PD ---
HPI Chief Complaint: Oral / Dental Pain or Problem Time Seen by Provider: 10:17 Travel History International Travel<30 days: No Contact w/Intl Traveler<30days: No Traveled to known affect area: No History of Present Illness HPI This 31-year-old female is complaining of pain on the right side of her jaw. She has had a lot of trouble with her teeth in the past. Her upper teeth have been extracted and she is in the process of having her lower teeth extracted this pain has started with her lower teeth and the jaw became swollen last couple of days. Been taking Tylenol without any relief. [facility] Past Medical History Medical History: Denies Significant Hx Blood Disorders: No Anxiety: Yes Diminished Hearing: No Immunizations Current: No ?: Not LMP: 1 WEEK AGO : 1 Para: 1 Past Surgical History Surgical History: No Previous Surgery AICD: No Joint Replacement: No Pacemaker: No Social History Alcohol Use: Yes (Rare) Tobacco Use: No Substance Use: No Allergies-Medications (Allergen,Severity, Reaction): Coded Allergies: penicillin G (Unverified Allergy, Severe, Hives, 03/29/17) Reported Meds & Prescriptions Reported Meds & Active Scripts Active No Active Prescriptions or Reported Medications Review of Systems General / Constitutional: No: Fever, Chills Eyes: No: Diploplia HENT: Positive: Dental Difficulties Cardiovascular: No: Chest Pain or Discomfort, Palpitations Respiratory: No: Cough, Shortness of Breath Gastrointestinal: No: Nausea, Vomiting Genitourinary: No: Urgency, Frequency, Dysuria Physical Exam Narrative GENERAL: Well-developed female SKIN: Focused skin assessment warm/dry. HEAD: Atraumatic. Normocephalic. EYES: Pupils equal and round. No scleral icterus. No injection or drainage. ENT: No nasal bleeding or discharge. Mucous membranes pink and moist. There are no upper teeth. The right mandibular teeth are eroded repair. There is swelling of the jaw NECK: Trachea midline. No JVD. CARDIOVASCULAR: Regular rate and rhythm. No murmur appreciated. RESPIRATORY: No accessory muscle use. Clear to auscultation. Breath sounds equal bilaterally. GASTROINTESTINAL: Abdomen soft, non-tender, nondistended. Hepatic and splenic margins not palpable. MUSCULOSKELETAL: No obvious deformities. No clubbing. No cyanosis. No edema. NEUROLOGICAL: Awake and alert. No obvious cranial nerve deficits. Motor grossly within normal limits. Normal speech. PSYCHIATRIC: Appropriate mood and affect; insight and judgment normal. Data Data Last Documented VS Vital Signs Date Time Temp Pulse Resp B/P (MAP) Pulse Ox O2 Delivery O2 Flow Rate FiO2 03/29/17 09:54 97.2 88 15 128/85 (99) 100 MDM Medical Decision Making Medical Screen Exam Complete: Yes Emergency Medical Condition: Yes Medical Record Reviewed: Yes Differential Diagnosis Differential includes dental caries, abscess Narrative Course Exam is consistent with abscess in this area is swollen and tender. She is allergic to penicillin and will be placed on clindamycin Diagnosis Primary Impression: Dental abscess Scripts No Active Prescriptions or Reported Meds Disposition: DISCHARGE HOME Condition: Stable Jones Kent MD Mar 29, 2017 10:24
[2017-03-29] MEDS ORDERED: HYDR-3534 PO (10:26)
[2017-03-29] MEDS ORDERED: CLIN1CAP6 PO (10:26)
== END 2017-03-29 11:00 | disposition home or self-care (01) ==
LOC: PHEFT 09:49
DX: K04.7 Periapical abscess without sinus (principal)
CPT/HCPCS: 99284